=== PATIENT | female | born 1945 | race African-American/Black ===

== ENCOUNTER 2016-08-21 07:00 | Emergency (ER) | payer OTHER ==
[2016-08-21 08:36] VITALS: BP 148/84
== END 2016-08-21 08:36 | disposition home or self-care (01) ==
LOC: ED 07:00
DX: R42 Dizziness and giddiness (principal); H61.22 Impacted cerumen, left ear; E78.5 Hyperlipidemia, unspecified; I10 Essential (primary) hypertension; M10.9 Gout, unspecified